=== PATIENT | male | born 2000 | race Two or more races ===

== ENCOUNTER 2025-06-13 21:31 | Emergency (ER) | payer SELFPAY ==
[2025-06-13 21:32] VITALS: BMI 25.4
--- NOTE | 2025-06-13 21:40 | PD.EDABDPN ---
ED Abdominal Pain RME/HPI General Chief Complaint: Abdominal Pain Stated complaint: UPPER ABD PAIN Time seen by provider: 06/13/25 21:52 Arrival date/time: 06/13/25 21:31 RME / HPI RME / HPI narrative: CC: Abdominal Pain Patient is a 25-year-old male who denied a past medical history and presented to the emergency room with a chief complaint of epigastric abdominal pain ongoing for the past 3 days. Patient stated abdominal pain originates at the epigastric region causing nausea and vomiting. Patient denied any pattern to abdominal pain and stated it is not exacerbated by food or greasy food. Patient stated 3 episodes of emesis with food content. Denied hematemesis. Denied alcohol use or illicit drug use. Several episodes of diarrhea 3 days ago. Denied cycles of constipation or diarrhea. Denied history of ulcers. Denied history of H. pylori. Denied eating undercooked chicken or dawkins that was left in the counter. Denied history of Crohn's or UC. Denied blood in stool. Patinet stated this has never happened before. No abdomen CBC, CMP, EKG, Troponin, UA, Utox, Urine Alcohol Ketorolac 30 mg IM X 1 & Famotidine 40 mg X 1 Related Data Previous Rx's ?Medication ?Instructions ?Recorded famotidine 40 mg tablet 40 mg PO HS 2 weeks #14 tabs 06/13/25 omeprazole 40 mg capsule,delayed 40 mg PO QDAY 2 weeks #14 caps 06/13/25 release ondansetron HCl 4 mg tablet 4 mg PO Q8H PRN nausea and 06/13/25 vomiting 2 weeks #42 tabs Allergies Allergy/AdvReac Type Severity Reaction Status Date / Time No Known Allergies Allergy Verified 06/13/25 21:32 Review of Systems Review of Systems Narrative Review of Systems: General appearance: NO weight change, NO fatigue, NO weakness, NO fever, NO chills, NO night sweats, No cough Skin: NO rash, NO itching, NO sores, NO moles HEENT: NO Trauma, NO nausea, NO vomiting, NO visual changes, NO blurry vision, NO double vision, NO tinnitus, NO vertigo, NO ear discharge, NO rhinorrhea, NO stuffiness, NO sneezing, NO allergy, NO epistaxis. NO Hoarseness, NO sore throat, NO swollen neck. Cardiac: No Chest pain, NO Palpitations, NO dyspnea on exertion, NO orthopnea, NO paroxysmal nocturnal dyspnea, NO edema Respiratory: NO Shortness of Breath, NO Wheezing, NO Cough, NO Sputum, NO hemoptysis GI:yes appetite, yes nausea, yes vomiting, NO dysphagia, Yes changes in bowel frequency-Diarrhea, NO stool color, YEs diarrhea, NO constipation, NO hemetemesis, NO hemorrhoids, NO melena, NO hematechezia, yes abdominal pain-epigastric, NO jaundice Renal: NO frequency, NO hesitancy, NO urgency, NO hematuria, NO nocturia, NO incontinence MSK: NO muscle weakness, NO gout, NO arthritis, NO muscle stiffness Neuro: NO headaches, NO tremors, NO weakness, NO paralysis, NO seizures, NO loss of consciousness, NO numbness. Hem: NO anemia, NO easy bruising/bleeding, NO petechiae, NO purpura Endo: NO heat/cold intolerance, NO excessive sweating, NO polyuria, NO polydipsia, NO polyphagia, NO thyroid problems, NO diabetes Pysch: NO mood, NO anxiety, NO depression ED Exam Narrative Physical exam: General Appearance: Alert & Oriented X3, well-nourished male who is lying in bed in no acute distress HEENT: Skull symmetrical and atraumatic. Conjunctivae pale pink and moist. Pupils equal, round, reactive to light and accommodation (PERRL). External ear without lesion or discharge. Straight, nares patient, mucosa pink, no discharge. Cardio: Normal Rate and Rhythm with S1 and S2 heart sounds. No murmurs or extra heart sounds auscultated. No bruits on carotid auscultation. No peripheral edema or cyanosis. Lungs: Symmetric with good expansion. Chest and back non-tender. Breath sounds vesicular without crackles, wheezing or rhonchi Abdomen: Mild tenderness at epigastric region, Non-distended, Normal Reactive Bowel Sounds, Partida Sign Negative Neuro: Alert, cooperative, oriented to person, place, and time. Speech clear. CN grossly intact. Upper motor strength 5/5 and Lower motor strength 5/5. Sensation intact. Course Course Course Narrative: CBC CMP Lipase UA Utox CT abdomen Quality Measures none Orders Category Date Time Status CT Screening NOW Care 06/13/25 21:54 Active EKG (ED ONLY) *Do not use* NOW Care 06/13/25 21:[address] abdomen pelvis wo con Stat Exams 06/13/25 22:00 Completed EKG (ED Only) Stat Exams 06/13/25 21:52 Draft US gall bladder Stat Exams 06/13/25 22:01 Completed Alcohol, Urine Stat Lab 06/13/25 22:43 Received CBC Stat Lab 06/13/25 22:26 Completed Comprehensive Metabolic Panel Stat Lab 06/13/25 22:26 Completed Drug Screen,Urine Stat Lab 06/13/25 22:43 Received Lipase Stat Lab 06/13/25 22:26 Completed Magnesium Stat Lab 06/13/25 22:26 Completed Troponin I Stat Lab 06/13/25 22:26 Completed Urinalysis, C/S if Indicated Stat Lab 06/13/25 22:43 Completed ACETAMINOPHEN w/COD 300-30 [Tylenol w/Cod #3] Med 06/13/25 22:00 Discontinued 2 tab PO X1 ONE Famotidine [Pepcid] Med 06/13/25 21:52 Discontinued 40 mg PO X1 ONE Ketorolac Inj [Toradol Inj] Med 06/13/25 21:52 Discontinued 30 mg IM X1 ONE Ondansetron Odt [Zofran Odt] Med 06/13/25 22:00 Discontinued 4 mg PO X1 ONE Pantoprazole [Protonix] Med 06/13/25 22:00 Discontinued 40 mg PO X1 ONE EKG (RT) Stat RT 06/13/25 21:56 Ordered Vital Signs Vital signs: Vital Signs Temperature 98.2 F 06/13/25 21:54 Pulse Rate 86 06/13/25 21:54 Respiratory Rate 18 06/13/25 21:54 Blood Pressure 110/71 06/13/25 21:54 Pulse Oximetry (%) 98 06/13/25 21:54 Oxygen Delivery Method Room Air 06/13/25 21:54 Abdominal Pain MDM Patient data External records reviewed:: [facility] previous records Clinical information provided by:: patient Social determinants that could affect healthcare access:: none Patient has the following chronic illnesses:: None How is presenting disease/condition affected by chronic disease/condition?: no chronic disease Evaluation data The following diagnostics were reviewed and interpreted by me:: lab results Lab and/or radiology exams considered but not ordered:: None Interpretation Summary: Patient is a 25-year-old male with no past medical history presented to the emergency room with a chief complaint of epigastric pain/abdominal pain likely secondary to GERD/acid reflux. Most likely related to ACS/cardiac given EKG has been unremarkable no ST elevations noted in troponins are negative. CT abdomen negative for any colitis or concerns of Crohn's. Gallbladder negative for cholecystitis. AST's and ALT's within normal limits. Lipase negative. #GERD - The patient's plan was discussed with attending Dr. Amber Iverson MD PGY2 Internal Medicine Medications / Prescriptions Medications or Prescriptions considered but not ordered:: none Medication administrations:: Medication Administration History Discontinued Medications Acetaminophen/Codeine Phosphate (Acetaminophen W/Cod 300-30 Tablet) 2 tab PO X1 ONE Stop: 06/13/25 22:01 Last Admin: 06/13/25 22:44 Dose: 2 tab Documented By: BD Famotidine (Famotidine 20 Mg Tablet) 40 mg PO X1 ONE Stop: 06/13/25 21:53 Last Admin: 06/13/25 22:44 Dose: 40 mg Documented By: BD Ketorolac Tromethamine (Ketorolac Inj 30 Mg/Ml Vial) 30 mg IM X1 ONE Stop: 06/13/25 21:53 Last Admin: 06/13/25 22:28 Dose: Not Given Documented By: BD Non-Admin Reason: Cancelled by Provider Ondansetron HCl (Ondansetron Odt 4 Mg Tabrap) 4 mg PO X1 ONE; Protocol Stop: 06/13/25 22:01 Last Admin: 06/13/25 22:44 Dose: 4 mg Documented By: BD Pantoprazole Sodium (Pantoprazole 40 Mg Tablet) 40 mg PO X1 ONE Stop: 06/13/25 22:01 Last Admin: 06/13/25 22:44 Dose: 40 mg Documented By: BD same as above Consultations Consultation(s) initiated? (list below): No Diagnosis Differential diagnosis abdominal pain: acute appendicitis, gastroenteritis, pancreatitis and other (H.pylori vs ACS ) Most likely diagnosis given after review of the tests above:: Patient is a 25-year-old male with no past medical history presented to the emergency room with a chief complaint of epigastric pain/abdominal pain likely secondary to GERD/acid reflux. Most likely related to ACS/cardiac given EKG has been unremarkable no ST elevations noted in troponins are negative. CT abdomen negative for any colitis or concerns of Crohn's. Gallbladder negative for cholecystitis. AST's and ALT's within normal limits. Lipase negative. #GERD - The patient's plan was discussed with attending Dr. Amber Iverson MD PGY2 Internal Medicine Admission Indicated Admission indicated?: not indicated Admission Request Was there a request for admission?: No Disposition Plan Disposition Plan: Discharge Discharge Attestation Discharge Attestation: The patient and all family members were given an opportunity to ask questions and understood the discharge instructions. Discharge instructions specifically effects, indications for sooner follow up or return to the emergency department, and the expected course of current diagnosis. Patient condition: Stable Discharge Plan Plan Patient Disposition: HOME (Self Care) Patient condition on transfer: Stable Health Concerns: Instructions: -After you visit to the emergency room, your symptoms are likely to to acid reflux/GERD ?To help heal the ulcer, take Omeprazole 40 mg every morning and Famotidine 40 mg at bedtime for a week then as needed. ?Zofran for nausea/vomiting.? Clear liquid diet for 24 hours.? Then slowly advance diet as tolerated. ?Avoid food and beverages that can trigger and worsen ulcers and GERD.? See attached handouts. ?See a private doctor on 06/18/2025. To make sure there is no serious intra-abdominal condition, ask for help with more investigation not available here in the ER.? Such as EGD or scoping the stomach, colonoscopy or scoping the colon, and referral to see field sampling technician. ?Seek immediate medical care with worsening or with any concerns. Prescriptions/Referrals Prescriptions/Med Rec: New omeprazole 40 mg capsule,delayed release(DR/EC) 40 mg PO QDAY 14 Days Qty: 14 0RF famotidine 40 mg tablet 40 mg PO HS 14 Days Qty: 14 0RF ondansetron HCl 4 mg tablet 4 mg PO Q8H PRN (Reason: nausea and vomiting) 14 Days Qty: 42 0RF Referrals: Sheldon Cortez MD [Primary Care Provider] - In 1 week Problem List Clinical Impression: Acid reflux disease, Chest pain due to GERD Patient/Caregiver Discharge Instructions Education Materials: ED GERD (Adult) Print Language: Malagasy Stand Alone Forms: Jalyn Award Info., Patient Portal Info Letter
--- NOTE | 2025-06-13 21:52 | EKG_ITS ---
[facility] Test Date: 2025-06-13 Pat Name: Aris Viveros Department: Room: - Gender: Male Road Patcher: : 2000 Requested By: Stephanie Iverson Order Number: [id number] Reading MD: Stephanie Iverson Measurements Intervals [place] Rate: 75 P: 54 [place]: 120 QRS: 82 QRSD: 95 T: 54 QT: 364 QTc: 408 Interpretive Statements SINUS RHYTHM No previous ECG available for comparison /store/S0/[id number].pdf
[2025-06-13 21:54] VITALS: BP 110/71; PULSE 86; RESP 18; TEMP 36.8; O2SAT 98
--- NOTE | 2025-06-13 22:00 | XR_ITS ---
Examination: CT abdomen and pelvis without contrast. Coronal 3-D reconstructions. Sagittal 2-D reconstructions. Date and time of exam: June 13, 2025, 10:30 p.m. INDICATIONS: Upper abdominal pain epigastric pain today CTDI: vol (mGy): 7.52 DLP: (mGycm): 452 Technique: Axial images of the abdomen have been obtained, 3 mm slice thickness Intravenous contrast material has not been administered. Low dose protocols were performed. One or more of the following dose reduction techniques were used; automated exposure control, adjustment of the mA and/or KV according to patient size, use of iterative reconstruction technique. Findings: No focal liver or splenic lesions Contracted gallbladder No pancreatic or adrenal mass. No renal or ureteral calculi, no hydronephrosis Aorta normal size No pericecal inflammatory change No bowel obstruction No prostatomegaly Contracted urinary bladder Intact osseous structures IMPRESSION: No renal or ureteral calculi, no hydronephrosis Negative for pancreatitis No CT findings of appendicitis bowel obstruction or diverticulitis
--- NOTE | 2025-06-13 22:01 | XR_ITS ---
Examination: Abdomen sonogram, Limited Date and time of exam: June 13, 2025, 11:00 p.m. INDICATIONS: Epigastric pain beginning 3 days ago Technique: Real-time rivas scale transabdominal sonographic images of the upper abdomen obtained. Findings: Minimal gallbladder sludge, no stones Gallbladder wall 0.3 cm no edema Common bile duct 0.3 cm Pancreatic head 1.8 cm Liver 16.5 cm no focal liver lesions Normal hepatopetal portal venous flow Patent IVC IMPRESSION: Minimal gallbladder sludge Negative for cholelithiasis, negative for cholecystitis Normal common bile duct
[2025-06-13] MEDS: ACETAMINOPHEN w/COD 300-30 TABLET 2 TAB PO (22:44)
[2025-06-13] MEDS: PANTOPRAZOLE 40 MG TABLET PO (22:44)
[2025-06-13] MEDS: ONDANSETRON ODT 4 MG TABRAP PO (22:44)
[2025-06-13] MEDS: FAMOTIDINE 20 MG TABLET 40 MG PO (22:44)
[2025-06-13 22:50] LABS: Basophils # (Auto) 0.0 Thou/mm3 (0.0-0.2); Basophils % (Auto) 1 % (0-2.5); Eosinophils # (Auto) 0.1 Thou/mm3 (0.0-0.5); Eosinophils % (Auto) 1 % (0-10); Hematocrit 41.1 % (41.0-53.0); Hemoglobin 13.8 g/dL (13.5-16.0); Immature Granulocytes Auto 0.02 Thou/mm3 (0.00-0.00); Lymphocytes # (Auto) 2.6 Thou/mm3 (1.0-4.8); Lymphocytes % (Auto) 31 % (10-50); Mean Corpuscular HGB Conc 33.6 g/dl (31.0-37.0); Mean Corpuscular Hemoglobin 30.9 pg (25.0-35.0); Mean Corpuscular Volume 92 fL (80-100); Monocytes # (Auto) 0.7 Thou/mm3 (0.0-0.8); Monocytes % (Auto) 8 % (0-12); Neutrophils # (Auto) 4.9 Thou/mm3 (1.8-7.7); Neutrophils % (Auto) 59 % (37-80); Nucleated Red Blood Cell # 0.00 Thou/mm3 (0.00-0.00); Nucleated Red Blood Cell % 0 /100 WBC (0); Platelet Count 200 Thou/mm3 (140-440); RDW Standard Deviation 42.8 fL (35.1-43.9); Red Blood Count 4.46 Miln/mm3 (4.50-5.90); White Blood Count 8.4 Thou/mm3 (3.8-10.6)
[2025-06-13 22:54] LABS: Alanine Aminotransferase 26 U/L (10-49); Albumin, Serum 4.4 gm/dL (3.5-5.0); Albumin/Globulin Ratio 1.9 (1.2-2.2); Alkaline Phosphatase 77 U/L (46-116); Anion Gap 8 (7-16); Aspartate Amino Transferase < 10 U/L (0-34); BUN/Creatinine Ratio 14 Ratio (12-20); Bilirubin,Total 0.4 mg/dL (0.3-1.2); Blood Urea Nitrogen 11 mg/dL (9-23); Calcium 9.2 mg/dL (8.3-10.6); Calcium (Corrected) 9.2 mg/dL (8.5-10.1); Carbon Dioxide 28.8 mMol/L (20.0-31.0); Chloride 105 mMol/L (98-107); Creatinine (Component) 0.8 mg/dL (0.6-1.3); Estimated Creatinine Clearance 147.7 mL/min (>60); Globulin 2.3 gm/dL (2.3-3.5); Glucose 119 mg/dL (74-106); Lipase 30 U/L (12-53); Magnesium 1.8 mg/dL (1.6-2.6); Osmolality,Calculated 283 (275-295); Potassium 3.7 mMol/L (3.4-5.1); Sodium 142 mMol/L (136-145); Total Protein 6.7 gm/dL (5.7-8.2); Troponin I < 0.002 ng/mL (0.0-0.045); eGFR > 60 See Note
[2025-06-13 23:28] LABS: Collection Type, Urine Clean Catch; Squamous Epithelial Cell,Urine 0 /hpf (0-5)
[2025-06-13 23:47] LABS: Amorphous Crystals,Urine Present (Absent); Bilirubin,Urine Negative (Negative); Blood,Urine Negative (Negative); Clarity,Urine Turbid (Clear/Hazy); Color,Urine Lt-Yellow (Lt Yel-Yel); Culture Indicated,Urine Not Indicated; Glucose, Urine Negative (Negative); Ketones,Urine Negative (Negative); Leukocyte Esterase,Urine Negative (Negative); Nitrite,Urine Negative (Negative); PH,Urine 8.0 (5.0-7.0); Protein,Urine Trace (Neg - Trace); RBC,Urine 4 /hpf (0-3); Specific Gravity,Urine 1.028 (1.001-1.035); Urobilinogen,Urine Negative mg/dL (0.0-1.0); WBC,Urine 8 /hpf (0-5)
[2025-06-13 23:50] LABS: Alcohol, Urine Negative (Negative); Amphetamine/Methamp Scrn,U Negative (Negative); Barbiturate Screen,Urine Negative (Negative); Benzodiazepines Screen,Urine Negative (Negative); Benzoylecgonine Screen, Ur Negative (Negative); Fentanyl Screen,Urine Negative (Negative); Opiate Screen,Urine Negative (Negative); THC Screen,Urine Negative (Negative)
[2025-06-14 00:08] VITALS: BP 119/74; PULSE 63; RESP 16; TEMP 36.9; O2SAT 98
== END 2025-06-14 00:16 | disposition home or self-care (01) ==
PROVIDERS: Emergency Provider Emergency Medicine; PCP Family Medicine
DX: K21.9 Gastro-esophageal reflux disease without esophagitis (principal)
CPT/HCPCS: 36415; 74176; 76705; 80053; 80307; 80320; 81001; 83690; 83735; 84484; 85025; 93005; 99283; Q0162; A9270; G0480